=== PATIENT | female | born 1955 | race African-American/Black ===

== ENCOUNTER 2016-05-21 03:01 | Emergency (ER) | payer OTHER ==
[~2016-05-21] VITALS: Ht 162.6 cm; Wt 71.0 kg
[~2016-05-21 03:01] MED LIST: LORT5TAB PO; METO25 PO; OXYC-360 PO; VIVELLE DOT TOP
[2016-05-21 03:05] VITALS: BP 201/97; PULSE 79; RESP 15; TEMP 97.9; O2SAT 97
[2016-05-21] MEDS ORDERED: cloNIDine HCL 0.2 MG TAB PO ONE (03:30)
--- NOTE | 2016-05-21 03:36 | PD ---
HPI Chief Complaint: Cold / Flu Symptoms Time Seen by Provider: 03:31 Travel History International Travel<30 days: No Contact w/Intl Traveler<30days: No Traveled to known affect area: No History of Present Illness HPI 60-year-old black female presents emergency Department with complaints of laryngitis. She states that she is been sick now for last few days. She has had some runny nose, cough, slight sputum which is worse in the morning when she wakes up. She has had hoarse voice. She feels that she may have had a subjective fever the day before but none today. She did not take her blood pressure medications today because she was too busy. She denies any nausea vomiting. No abdominal pain or diarrhea. No urinary symptoms. She does report a mild headache. PFSH Past Medical History Narrative Medical Anxiety, hypertension, arrhythmia Arthritis: No Asthma: No Autoimmune Disease: No Blood Disorders: No Anxiety: Yes Depression: No Heart Rhythm Problems: No Cancer: No Cardiovascular Problems: No High Cholesterol: No Chemotherapy: No Chest Pain: No Congestive Heart Failure: No COPD: No Cerebrovascular Accident: No Diabetes: No Endocrine: No GERD: No Glaucoma: No Genitourinary: No Headaches: No Hepatitis: No Hiatal Hernia: No Hypertension: Yes (HX) Immune Disorder: No Kidney Stones: No Musculoskeletal: No Neurologic: No Psychiatric: No Reproductive: No Respiratory: No Migraines: No Myocardial Infarction: No Radiation Therapy: No Renal Failure: No Seizures: No Sickle Cell Disease: No Sleep Apnea: Yes (OCCASIONALLY) Thyroid Disease: No Ulcer: No Tetanus Vaccination: < 5 Years Past Surgical History Surgical History: No Previous Surgery Abdominal Surgery: No AICD: No Appendectomy: No Arteriovenous Shunt: No Cardiac Surgery: No Cholecystectomy: No Ear Surgery: No Endocrine Surgery: No Eye Surgery: No Genitourinary Surgery: No Gynecologic Surgery: No Insulin Pump: No Joint Replacement: No Oral Surgery: No Pacemaker: No Thoracic Surgery: No Social History Alcohol Use: Yes (SOCIALLY) Tobacco Use: No Substance Use: No Allergies-Medications (Allergen,Severity, Reaction): Coded Allergies: Penicillin (Unverified Allergy, Intermediate, HIVES, 05/21/16) Reported Meds & Prescriptions Reported Meds & Active Scripts Active Reported [Vivelle Dot 0.1] TOP DIRECTED Percocet (Oxycodone/Acetaminophen) 5 Mg/325 Mg Tab 1-2 Tab PO Q4HPRN FOR PAIN Lortab 5/500 (Acetaminophen/Hydrocodone Bitart) 5 Mg/500 Mg Tab 1 Tab PO TID FOR PAIN Lopressor (Metoprolol Tartrate) 25 Mg Tab 25 Mg PO DAILY Review of Systems Except as stated in HPI: all other systems reviewed are Neg Physical Exam Narrative GENERAL: Well-developed, well-nourished in no acute distress. Nontoxic appearing. Patient has laryngitis. HEAD: Normocephalic, atraumatic. EYES: Pupils equal round and reactive. Extraocular motions intact. No scleral icterus. No injection or drainage. ENT: TMs clear without erythema. The external auditory canals clear. Nose: clear . Posterior pharynx is pink and moist. No tonsillar edema or exudate. Uvula midline. Airway patent. NECK: Trachea midline.Supple, nontender, moves head freely. No central bony tenderness or spasm. CARDIOVASCULAR: Regular rate and rhythm without murmurs, gallops, or rubs. RESPIRATORY: Clear to auscultation. Breath sounds equal bilaterally. No wheezes , rales, or rhonchi. GASTROINTESTINAL: Abdomen soft, non-tender, nondistended. No hepato-splenomegaly , or palpable masses. No guarding. EXTREMITIES: No clubbing, cyanosis, or edema. No joint tenderness, effusion, or edema noted. BACK: Nontender without deformity or crepitance. No flank tenderness. Data Data Last Documented VS Vital Signs Date Time Temp Pulse Resp B/P Pulse Ox O2 Delivery O2 Flow Rate FiO2 05/21/16 03:05 97.9 79 15 201/97 97 Room Air Orders Clonidine (Catapres) (05/21/16 03:30) [facility] Medical Decision Making Medical Screen Exam Complete: Yes Emergency Medical Condition: Yes Medical Record Reviewed: Yes Differential Diagnosis MDM: High Differential diagnoses: Strep throat, viral pharyngitis, mono, laryngitis, hypertension Narrative Course Patient's given 0.2 mg of Catapres by mouth. Patient's exam is unremarkable for any bacterial infection. She has symptoms of a viral pharyngitis/ laryngitis. Patient is encouraged to perform symptomatic treatment. This is laryngitis, hypertension Diagnosis Primary Impression: Laryngitis Additional Impression: Hypertension Qualified Code: I10 - Essential hypertension Patient Instructions: General Instructions Additional Instructions: Rest. Increase fluids. Tylenol and Advil. Monitor blood pressure daily. Followup with your Dr. in one week. Return to the ER for any problems. Disposition: 01 DISCHARGE HOME Condition: Stable Landon Benz May 21, 2016 03:36
[2016-06-14] MEDS ORDERED: ASPI81CH CHEW (10:06)
[2016-06-16] MEDS ORDERED: METO25TA6 PO (14:04)
[2016-06-28] MEDS ORDERED: MACR100C2 PO (09:05)
[2016-08-04] MEDS ORDERED: METO25TA6 PO (13:44)
== END 2016-05-21 03:55 | disposition home or self-care (01) ==
LOC: NETRI 03:01
DX: J04.0 Acute laryngitis (principal); I10 Essential (primary) hypertension; R51 Headache
CPT/HCPCS: 99283